=== PATIENT | female | born 1980 | race African-American/Black ===

== ENCOUNTER 2023-09-20 06:33 | Emergency (ER) | payer BC, SELFPAY ==
[2023-09-20 06:35] VITALS: BP 133/96
--- NOTE | 2023-09-20 07:26 | ED.GENMED ---
History of Present Illness
General
Chief Complaint: Cardiac Symptoms
Source: patient
Exam Limitations: none
Time Seen by Provider: 09/20/23 07:07
Nursing documentation reviewed up to this point in time: agreed with
Travel History
Have you had any contact with someone who has COVID-19?: No
Do you have any symptoms of coronavirus? Fever > 100 degrees, chills, cough, shortness of breath, sore throat, loss of taste or smell, muscle aches, or headache?: No
History of Present Illness
History of Present Illness:
43-year-old female with history of HTN, GERD, in 09/2022 had 'fluid in my lungs,' she was seen by a [place] public speaking coach and had a Holter monitor which she states showed several short periods of SVT. Presents stating she awakened at 2 AM to go to the
bathroom and her heart was 'beating fast.' She went and laid down and at that time she felt little lightheaded and a little short of breath and her Apple Watch noted a heart rate of 159. She called 911 who came and did an EKG and by that time her
heart rate was 104 and it was determined that she did not need to come to the hospital.
At 5 AM she was up again feeling lightheaded and weak so she is here for evaluation. She denies feeling her heart racing at this time. She denies chest pain or SOB. She denies N/V/D/C. She denies abdominal pain. She states she has been
urinating more frequently than usual lately.
She states her last menstrual period started on 09/03 and just ended yesterday which was a very long period for her.
Past History
Past History
ED Past Medical History: GERD and HTN
ED Past Surgical History: Other (Bilateral cervical lymph node removal at age 12)
Social History
Tobacco: Non-smoker
Alcohol: None
Drug: None
Personal: Single
Living: with family (Lives with her son)
Employment: Employed (Registered nurse)
Family History
Family History: Hypertension
Review of Systems
Review of Systems
Allergies reviewed?: Yes
All Other Systems: ROS reviewed and negative except as documented in HPI and ROS
Constitutional: Reports fatigue; Denies fever or chills
EENT: Denies sore throat
Respiratory: Denies cough or trouble breathing
Cardiac: Denies chest pain, diaphoresis, palpitations or syncope
ABD/GI: Denies abdominal pain, nausea, vomiting, diarrhea or anorexia
: Reports frequency; Denies dysuria, flank pain, difficulty voiding or urgency
Musculoskeletal: Reports no symptoms
Skin: Reports no symptoms
Neurological: Denies dizzy, headache, weakness or numbness
Phy Exam
Physical Exam
Physical Exam:
GENERAL: No acute distress. A&Ox3.
CONSTITUTIONAL: Afebrile.
EYES: Clear, conjunctivae normal
Neck: Supple
ENMT: moist mucus membranes
RESPIRATORY: Regular respirations, nonlabored, lungs clear.
CARDIOVASCULAR: Regular rate and rhythm, no murmurs, no rubs.
GI: Soft, nontender, normal BS
MUSCULOSKELETAL: Moves with ease. Well perfused.
SKIN: Warm, dry, normal
PSYCH: Normal mood and affect. Well kept, interactive and appropriate
NEUROLOGIC: Awake, alert and oriented. No focal neurological deficits
Course
Orders/Labs/Results
Orders:
Orders
09/20/23 06:40
Electrocardiogram (*1) Urgent
Reason for Study: Palpitations
EKG- Treatment ONCE
Test Result ONCE
09/20/23 07:19
0.9% Sodium Chloride 1000 ml [Nss] 1,000 ml IV BOLUS
09/20/23 07:29
Basic Metabolic Panel Urgent
Complete Blood Count/With Diff Urgent
HCG, Urine Qualitative Screen Urgent
Date Specimen was Collected: 09/20/23
Time Specimen was Collected: 07:25
Comment: ADD ON
NT-proBNP Urgent
Troponin I Urgent
Urinalysis Reflex To Culture Urgent
Date Specimen was Collected: 09/20/23
Time Specimen was Collected: 07:25
Urine Microscopic Reflex Cult Urgent
Urine Culture Urgent
FESTUS Source: U
Specimen Description:
Obtained by: Random
Date Specimen was Collected: 09/20/23
Time Specimen was Collected: 07:25
09/20/23 09:05
Add On- LAB Urgent
Tests Added?: hcg to urine
09/20/23 09:38
Acetaminophen [Tylenol] 1,000 mg PO NOW STA
Abnormal Lab Results
09/20/23
07:29
WBC 3.8 L 10^3/uL
(4.8-10.8)
Hct 36.7 L %
(37.0-47.0)
Carbon Dioxide 21 L mmol/L
(22-30)
Glucose 118 H mg/dl
(70-99)
Leukocyte Esterase Rfl 1+ A
(Negative)
Urine Bacteria (Reflex) Few A
(Negative)
09/20/23 07:29
09/20/23 08:54
Vital Signs
Initial and Last Documented VS:
Initial Vital Signs
Temp Pulse Resp BP Pulse Ox
98.1 F 98 24 133/96 98
09/20/23 06:35 09/20/23 06:35 09/20/23 06:35 09/20/23 06:35 09/20/23 06:35
Last Documented Vital Signs
Temp Pulse Resp BP Pulse Ox
98.1 F 68 22 113/76 100
09/20/23 06:35 09/20/23 10:00 09/20/23 10:00 09/20/23 10:00 09/20/23 07:15
MDM/Problems Addressed
Differential Diagnosis Includes:
SVT, ME, CHF
UTI
MDM/Problems Addressed:
43-year-old female with history of HTN, GERD, in 09/2022 had 'fluid in my lungs,' she was seen by a [place] public speaking coach and had a Holter monitor which she states showed several short periods of SVT. Presents stating she awakened at 2 AM to go to the
bathroom and her heart was 'beating fast.' She went and laid down and at that time she felt little lightheaded and a little short of breath and her Apple Watch noted a heart rate of 159. She called 911 who came and did an EKG and by that time her
heart rate was 104 and it was determined that she did not need to come to the hospital.
At 5 AM she was up again feeling lightheaded and weak so she is here for evaluation. She denies feeling her heart racing at this time. She denies chest pain or SOB. She denies N/V/D/C. She denies abdominal pain. She states she has been
urinating more frequently than usual lately.
She states her last menstrual period started on 09/03 and just ended yesterday which was a very long period for her.
Appears in NAD
9:00 AM
CBC normal
Troponin normal
BNP normal
UA negative
Monitor has been NSR since arrival
9:52 AM
Patient states she has a 'mild headache and is requesting Tylenol. Ordered
CMP: Normal
Patient is stable for discharge.
*Critical Care Note
Total Time (30-74mins, 75-104mins- exclusive of procedures): Not Applicable
ED Attending Note
-
Portions of this chart may have been created with voice recognition software.� Occasional wrong word or��sound alike� substitutions may have occurred due to the inherent limitations of voice recognition software.
Discharge Plan
Departure
Patient Disposition: Home (Routine Discharge)
Date of Disposition: 09/20/23
Time of Disposition: 09:53
Patient with high blood pressure during this ER visit?: No
Condition: Good
Discharge Problem:
Light-headedness, Generalized weakness
Instructions: Generalized Weakness, Dizziness, Adult ED
Prescriptions:
No Action
hydralazine 25 mg Tablet
25 mg PO BID
nifedipine 60 mg Tablet Extended Release
60 mg PO BID
Referrals:
Amador Mcfarlane, DO [Family Provider] - As needed
Stand Alone Forms: Return to Work
Activity Restrictions/Additional Instructions:
As we discussed, your workup here today shows nothing worrisome.
You may return to work tomorrow.
Interventions
Interventions:
*Risk Screen - Suicide Last Done: 09/20/23 06:35
*Neglect/Abuse Screening Last Done: 09/20/23 06:35
*ED COVID-19 Vaccine History Last Done: 09/20/23 07:35
*Nursing Disposition Last Done: 09/20/23 10:15
ED- Pulmonary Assessment Last Done: 09/20/23 07:34
ED- Cardiac Assessment Last Done: 09/20/23 07:34
Discharge Date and Time
Discharge Date/Time: 09/20/23 10:15
Print Language: ARABIC
[2023-09-20 07:29] VITALS: BP 114/80
[2023-09-20 07:47] LABS: % Basophils 0.5 % (0-2); % Eosinophils 2.1 % (0-6); % Immature Granulocytes 0.3 % (0-0.5); % Lymphocytes 34.1 % (20.5-51.1); % Monocytes 6.9 % (1.7-9.3); % Neutrophils 56.1 % (42.2-75.2); Absolute Eosinophils 0.1 10^3/uL (0-0.7); Absolute Lymphocytes 1.3 10^3/uL (1.2-3.4); Absolute Monocytes 0.3 10^3/uL (0.1-0.6); Absolute Neutrophils 2.1 10^3/uL (1.4-6.5); Hematocrit 36.7 % (37.0-47.0); Hemoglobin 12.3 g/dL (12.0-16.0); Mean Corp Hgb Conc. 33.5 g/dL (33.0-37.0); Mean Corpuscular Hgb 27.8 pg (27.0-31.0); Mean Platelet Volume 8.6 fL (7.4-10.4); Nucleated Red Blood Cells % 0 %; Platelet Count 391 10^3/uL (130-400); Red Blood Cell Count 4.42 10^6/uL (4.20-5.40); Red Cell Dist. Width 12.6 % (11.5-14.5); White Blood Cell Count 3.8 10^3/uL (4.8-10.8)
[2023-09-20 07:52] LABS: Urine Albumin Negative (Neg - Trace); Urine Bilirubin Negative (Negative); Urine Character Clear (Clear); Urine Color Yellow; Urine Glucose Negative (Negative); Urine Ketone Negative (Negative); Urine Leukocyte 1+ (Negative); Urine Nitrite Negative (Negative); Urine Occult Blood Negative (Negative); Urine Urobilinogen Negative (Neg - 1+)
[2023-09-20 08:00] VITALS: BP 123/72
[2023-09-20 08:04] LABS: Urine Squamous Cell >30 /LPF (Few)
[2023-09-20 08:05] LABS: Urine Bacteria Few (Negative); Urine Red Blood Cell 0-2 /HPF (0-2); Urine White Cell 0-2 /HPF (0-5)
[2023-09-20 08:14] LABS: NT-proBNP 44.1 pg/ml; Troponin I < 0.012 ng/ml
[2023-09-20] MEDS: NSS 1000 IV (08:22)
[2023-09-20 09:00] VITALS: BP 116/71
[2023-09-20 09:13] LABS: Blood Urea Nitrogen 14 mg/dl (7-17); Carbon Dioxide 21 mmol/L (22-30); Chloride 104 mmol/L (98-107); Glucose 118 mg/dl (70-99); Sodium 136 mmol/L (135-145); eGFR > 60.00
[2023-09-20] MEDS: TYLENOL 1000 MG PO (09:40)
[2023-09-20 10:00] VITALS: BP 113/76
[2023-09-20 10:12] LABS: HCG, Urine Qualitative Screen Negative
== END 2023-09-20 10:15 | disposition home or self-care (01) ==
LOC: EMR 06:33
PROVIDERS: Registered Nurse; EMERGENCY PHYSICIAN Emergency Medicine; FAMILY PHYSICIAN Family Medicine
DX: R53.1 Weakness (principal); R42 Dizziness and giddiness; R51.9 Headache, unspecified; K21.9 Gastro-esophageal reflux disease without esophagitis; I10 Essential (primary) hypertension
CPT/HCPCS: 99284; 96360; 96361; 80048; 81003; 81015; 81025; 83880; 84484; 85025; 87086; 93005